=== PATIENT | female | born 1985 | race African-American/Black ===

== ENCOUNTER 2019-07-20 18:51 | Emergency (ER) | payer SELFPAY ==
[~2019-07-20] VITALS: Ht 160 cm; Wt 95.3 kg
[~2019-07-20 18:51] MED LIST: EPI EZ PEN1 MG/ML IM
[2019-07-20] MEDS ORDERED: Tobrex Ophth S2.5 ML OPH (19:18)
== END 2019-07-20 19:30 | disposition home or self-care (01) ==
LOC: ED 18:51
DX: H00.014 Hordeolum externum left upper eyelid (principal)

== ENCOUNTER 2022-12-05 12:18 | Emergency (ER) | payer OTHER ==
[~2022-12-05] VITALS: Ht 160 cm; Wt 105.7 kg
[~2022-12-05 12:18] MED LIST changes: +Percocet 325 MG1 TAB PO; +Tobrex Ophth S2.5 ML OPH
[2022-12-05] MEDS ORDERED: PENICILLIN-VK500 MG PO (12:47)
== END 2022-12-05 13:04 | disposition home or self-care (01) ==
LOC: ED 12:18
DX: J02.9 Acute pharyngitis, unspecified (principal)

== ENCOUNTER 2025-09-11 08:22 | Emergency (ER) | payer OTHER ==
[~2025-09-11] VITALS: Ht 160 cm; Wt 106.6 kg
[~2025-09-11 08:22] MED LIST changes: +PENICILLIN-VK500 MG PO
[2025-09-11] MEDS ORDERED: ACETAMINOPHEN 325 MG TAB PO ONE (08:50)
== END 2025-09-11 10:55 | disposition home or self-care (01) ==
LOC: ED 08:22
DX: S93.601A Unspecified sprain of right foot, initial encounter (principal); W01.0XXA Fall on same level from slipping, tripping and stumbling without subsequent striking against object, initial encounter; Y93.89 Activity, other specified; Y92.89 Other specified places as the place of occurrence of the external cause; Y99.8 Other external cause status